=== PATIENT | male | born 1995 | race Caucasian/White ===

== ENCOUNTER 2019-09-16 09:37 | Day surgery (SDC) | payer OTHER ==
[~2019-09-16] VITALS: Ht 167.6 cm; Wt 70.3 kg
[2019-09-16] MEDS ORDERED: fentaNYL 0.05 MG/ML VIAL ONE (12:44)
[2019-09-16] MEDS ORDERED: MIDAZOLAM 2 MG/2 ML VIAL ONE (12:44)
[2019-09-16] MEDS ORDERED: MIDAZOLAM 2 MG/2 ML VIAL IVP ONE (13:35)
== END 2019-09-16 14:14 | disposition home or self-care (01) ==
LOC: MDS 09:37 → MMU 09:40 → MDS 14:14
PROVIDERS: ATTEND Internal Medicine Gastroenterology
DX: R10.13 Epigastric pain (principal); R19.5 Other fecal abnormalities; Z79.899 Other long term (current) drug therapy; Z87.19 Personal history of other diseases of the digestive system
CPT/HCPCS: 36415; 43239; 86677; J2250; J3010